=== PATIENT | male | born 1940 | race Caucasian/White ===

== ENCOUNTER 2017-12-15 07:30 | Inpatient (IN) | payer OTHER ==
[~2017-12-15] VITALS: Ht 165.1 cm; Wt 75.3 kg
[~2017-12-15 07:30] MED LIST: LORA10TA7 PO; LOSA1TAB3 PO; SIMV40TA5 PO; SITA1TAB10 PO
[2017-12-15] MEDS ORDERED: ACETAMINOPHEN 500 MG TABLET PO ONE (07:45)
[2017-12-15] MEDS ORDERED: NACL 0.9% 1,000 ML IV ONE (07:45)
[2017-12-15] MEDS ORDERED: GABAPENTIN 300 MG CAPSULE PO ONE (07:45)
[2017-12-15] MEDS ORDERED: TRANEXAMIC ACID 650 MG TABLET PO ONE (07:45)
[2017-12-15] MEDS ORDERED: oxyCODONE HCL 10 MG TAB.ER.12H PO ONE ×2 (07:45→08:19)
[2017-12-15] MEDS ORDERED: CELECOXIB 200 MG CAPSULE PO ONE (07:45)
[2017-12-15] MEDS ORDERED: CELECOXIB 200 MG CAPSULE ONE (08:18)
[2017-12-15] MEDS ORDERED: GABAPENTIN 300 MG CAPSULE ONE (08:18)
[2017-12-15] MEDS ORDERED: ACETAMINOPHEN 500 MG TABLET ONE (08:19)
[2017-12-15] MEDS ORDERED: VANCOMYCIN HCL 1 GM/NS PREMIX 250 ML IV ONE (08:30)
[2017-12-15] MEDS ORDERED: POLYMYXIN 500,000/BACIT.10,000 UNITS in NS IRR 1 L IR ONE (09:17)
[2017-12-15] MEDS ORDERED: NS 50 ML BAG IV ONE (09:30)
[2017-12-15] MEDS ORDERED: LR 1,000 ML IV.SOLN IV ONE (09:30)
[2017-12-15] MEDS ORDERED: PROPOFOL 200MG/ 20ML VIAL (DIPRIVAN) IV ONE (09:30)
[2017-12-15] MEDS ORDERED: ROPIVACAINE HCL/PF 5 MG/ML 0.5% 30 ML VIAL INJ ONE (09:30)
[2017-12-15] MEDS ORDERED: VANCOMYCIN HCL 1000 MG/VIAL IV ONE (09:30)
[2017-12-15] MEDS ORDERED: KETOROLAC TROMETHAMINE 30 MG VIAL IVP ONE (09:30)
[2017-12-15] MEDS ORDERED: EPINEPHrine 1 MG/ML AMP IVP ONE (09:30)
[2017-12-15] MEDS ORDERED: TRANEXAMIC ACID 1,000 MG/10 ML VIAL IV ONE (09:30)
[2017-12-15] MEDS ORDERED: NALBUPHINE HCL 10 MG/ML AMP IVP PRN (10:30)
[2017-12-15] MEDS ORDERED: NALOXONE HCL 0.4 MG/ML AMP (NARCAN) IVP PRN (10:30)
[2017-12-15] MEDS ORDERED: FENT2mCg/mL-ROPIVA0.2%/NS EPID 150 ML EP SCH (10:30)
[2017-12-15] MEDS ORDERED: DIPHENHYDRAMINE INJ 50 MG/ML VIAL IVP PRN (10:30)
[2017-12-15] MEDS ORDERED: KETOROLAC TROMETHAMINE 30 MG VIAL IVP PRN (10:30)
[2017-12-15] MEDS ORDERED: ONDANSETRON HCL 4 MG/2 ML VIAL IVP PRN ×3 (10:30→11:45)
[2017-12-15] MEDS ORDERED: fentaNYL CITRATE/PF 100 MCG/2 ML AMP IVP PRN (10:30)
[2017-12-15] MEDS ORDERED: ROPIVACAINE 0.2% 100 ML ONE (10:31)
[2017-12-15] MEDS ORDERED: PROMETHAZINE HCL 25 MG/ML AMP IVP PRN (11:45)
[2017-12-15] MEDS ORDERED: KETOROLAC TROMETHAMINE 15 MG VIAL IVP PRN (11:45)
[2017-12-15] MEDS ORDERED: DIPHENHYDRAMINE HCL 25 MG CAPSULE PO PRN (11:45)
[2017-12-15] MEDS ORDERED: oxyCODONE HCL 5 MG TABLET PO PRN (11:45)
[2017-12-15] MEDS ORDERED: MORPHINE SULFATE 10 MG/ML VIAL IVP PRN (11:45)
[2017-12-15] MEDS ORDERED: SENNOSIDES 8.6 MG TABLET PO PRN (11:45)
[2017-12-15 12:30] VITALS: BP_SYST 138
[2017-12-15] MEDS ORDERED: VANCOMYCIN HCL 1 GM/NS PREMIX 250 ML IV SCH (13:00)
[2017-12-15] MEDS: LR 1,000 ML IV SCH ×2 (15:45→21:45)
[2017-12-15] MEDS: ACETAMINOPHEN 500 MG TABLET PO SCH ×2 (15:46→22:02)
[2017-12-15 16:11] VITALS: BP_SYST 113
[2017-12-15 17:22] VITALS: BP_SYST 116
[2017-12-15] MEDS: metFORMIN HCL 500 MG TABLET PO SCH (17:40)
[2017-12-15 20:15] VITALS: BP_SYST 106
[2017-12-15] MEDS ORDERED: METFORMIN HCL PO SCH (21:00)
[2017-12-15] MEDS ORDERED: INSULIN REGULAR, HUMAN 100 UNITS/ML, 10 ML VIAL (novoLIN R) SUBCUT PRN (21:00)
[2017-12-15] MEDS ORDERED: [UNRECOGNIZED DRUG - OTHER] PO SCH (21:00)
[2017-12-15] MEDS ORDERED: SITAGLIPTIN PHOS PO SCH (21:00)
[2017-12-15] MEDS: GABAPENTIN 300 MG CAPSULE PO SCH (22:01)
[2017-12-15] MEDS: CELECOXIB 200 MG CAPSULE PO SCH (22:02)
[2017-12-15] MEDS ORDERED: FENT2mCg/mL-ROPIVA0.2%/NS EPID 150 ML EP ONE (23:10)
[2017-12-16] MEDS ORDERED: ROPIVACAINE 0.2% 100 ML ONE (00:52)
[2017-12-16 01:00] VITALS: BP_SYST 103
[2017-12-16] MEDS: ROPIVACAINE 0.2% 100 ML EPI SCH ×2 (02:14→16:14)
[2017-12-16] MEDS: LR 1,000 ML IV SCH ×3 (02:17→16:32)
[2017-12-16 04:17] VITALS: BP_SYST 100
[2017-12-16 06:13] LABS: BASOPHILS % (AUTO) 0.5 % (0.0-2.0); EOSINOPHILS # (AUTO) 0.4 K/uL (0.0-0.4); EOSINOPHILS % (AUTO) 4.5 % (0.0-4.0); HEMATOCRIT 34.6 % (36-54); HEMOGLOBIN 11.5 g/dL (14.0-18.0); LYMPHOCYTES # (AUTO) 1.5 K/uL (1.0-5.5); LYMPHOCYTES % (AUTO) 16.1 % (20.5-51.5); MEAN CORPUSCULAR HEMOGLOBIN 31 pg (27-31); MEAN CORPUSCULAR HGB CONC 33 % (32-36); MEAN CORPUSCULAR VOLUME 93 fL (79.0-98.0); MONOCYTES # (AUTO) 0.9 K/uL (0.0-1.0); MONOCYTES % (AUTO) 9.9 % (1.7-9.3); NEUTROPHILS # (AUTO) 6.2 K/uL (1.8-7.7); PLATELET COUNT (AUTO) 188 K/uL (130-430); RED BLOOD CELL COUNT(AUTO) 3.72 MIL/uL (4.2-6.2); RED CELL DISTRIBUTION WIDTH 13.1 % (9.0-15.0)
[2017-12-16 06:15] LABS: ANION GAP 1 (5-15); CALCIUM 9.6 mg/dL (8.4-11.0); CHLORIDE 107 mmol/L (98-107); CREATININE 1.14 mg/dL (0.55-1.30); GLUCOSE 109 mg/dL (70-99); POTASSIUM 5.2 mmol/L (3.5-5.1); SODIUM SERUM 137 mmol/L (136-145); UREA NITROGEN, BLOOD 35 mg/dL (8-21)
[2017-12-16 08:00] VITALS: BP_SYST 101
[2017-12-16] MEDS ORDERED: LOSARTAN/HYDROCHLOROTHIAZIDE TAB (HYZAAR 50-12.5 MG) PO SCH (09:00)
[2017-12-16] MEDS: LOSARTAN POTASSIUM 50 MG TABLET (COZAAR) PO SCH (09:00)
[2017-12-16] MEDS: LORATADINE 10 MG TABLET PO SCH (09:53)
[2017-12-16] MEDS: HYDROCHLOROTHIAZIDE 12.5 MG CAPSULE (HCTZ) PO SCH (09:53)
[2017-12-16] MEDS: CELECOXIB 200 MG CAPSULE PO SCH ×2 (09:53→20:46)
[2017-12-16] MEDS: SIMVASTATIN 40 MG TABLET PO SCH (09:54)
[2017-12-16] MEDS: metFORMIN HCL 500 MG TABLET PO SCH ×2 (09:54→17:42)
[2017-12-16] MEDS: VANCOMYCIN HCL 1 GM/NS PREMIX 250 ML IV SCH (09:55)
[2017-12-16] MEDS: ACETAMINOPHEN 500 MG TABLET PO SCH ×3 (09:56→20:45)
[2017-12-16] MEDS: RIVAROXABAN 10 MG TABLET PO SCH (10:36)
[2017-12-16 12:29] VITALS: BP_SYST 125
[2017-12-16 16:00] VITALS: BP_SYST 111
[2017-12-16] MEDS: GABAPENTIN 300 MG CAPSULE PO SCH (20:45)
[2017-12-17 00:49] VITALS: BP_SYST 103
[2017-12-17] MEDS: LR 1,000 ML IV SCH (03:04)
[2017-12-17] MEDS: ROPIVACAINE 0.2% 100 ML EPI SCH (05:28)
[2017-12-17 06:19] LABS: BASOPHILS # (AUTO) 0.1 K/uL (0.0-0.2); BASOPHILS % (AUTO) 0.6 % (0.0-2.0); EOSINOPHILS # (AUTO) 0.6 K/uL (0.0-0.4); EOSINOPHILS % (AUTO) 6.4 % (0.0-4.0); HEMATOCRIT 35.1 % (36-54); HEMOGLOBIN 11.6 g/dL (14.0-18.0); LYMPHOCYTES # (AUTO) 1.7 K/uL (1.0-5.5); LYMPHOCYTES % (AUTO) 18.5 % (20.5-51.5); MEAN CORPUSCULAR HEMOGLOBIN 31 pg (27-31); MEAN CORPUSCULAR HGB CONC 33 % (32-36); MEAN CORPUSCULAR VOLUME 93 fL (79.0-98.0); MONOCYTES % (AUTO) 11.1 % (1.7-9.3); NEUTROPHILS % (AUTO) 63.4 % (40.0-70.0); PLATELET COUNT (AUTO) 184 K/uL (130-430); RED BLOOD CELL COUNT(AUTO) 3.78 MIL/uL (4.2-6.2); RED CELL DISTRIBUTION WIDTH 12.9 % (9.0-15.0); WHITE BLOOD COUNT (AUTO) 9.4 K/uL (4.8-10.8)
[2017-12-17 06:51] LABS: ANION GAP 6 (5-15); CALCIUM 9.2 mg/dL (8.4-11.0); CHLORIDE 106 mmol/L (98-107); CREATININE 0.98 mg/dL (0.55-1.30); GLUCOSE 93 mg/dL (70-99); POTASSIUM 4.5 mmol/L (3.5-5.1); SODIUM SERUM 141 mmol/L (136-145); UREA NITROGEN, BLOOD 24 mg/dL (8-21)
[2017-12-17 08:00] VITALS: BP_SYST 126
[2017-12-17] MEDS: LOSARTAN POTASSIUM 50 MG TABLET (COZAAR) PO SCH (08:22)
[2017-12-17] MEDS: HYDROCHLOROTHIAZIDE 12.5 MG CAPSULE (HCTZ) PO SCH (08:22)
[2017-12-17] MEDS: metFORMIN HCL 500 MG TABLET PO SCH (08:23)
[2017-12-17] MEDS: CELECOXIB 200 MG CAPSULE PO SCH (08:23)
[2017-12-17] MEDS: LORATADINE 10 MG TABLET PO SCH (08:24)
[2017-12-17] MEDS: SIMVASTATIN 40 MG TABLET PO SCH (08:24)
[2017-12-17] MEDS: VANCOMYCIN HCL 1 GM/NS PREMIX 250 ML IV SCH (08:27)
[2017-12-17] MEDS ORDERED: HYDR-3924 PO (09:05)
[2017-12-17] MEDS ORDERED: RIVA10TA PO (09:06)
[2017-12-17] MEDS: oxyCODONE HCL 5 MG TABLET PO PRN ×2 (09:28→15:03)
[2017-12-17] MEDS: RIVAROXABAN 10 MG TABLET PO SCH (10:41)
[2017-12-17 12:33] VITALS: BP_SYST 123
[2017-12-17 15:06] VITALS: BP_SYST 123
[2017-12-17 16:00] VITALS: BP_SYST 128
== END 2017-12-17 16:03 | disposition home health service (06) | DRG 470 ==
LOC: SMU 07:30 → STU 13:03
PROVIDERS: ADMIT Orthopaedic Surgery; ATTEND Orthopaedic Surgery
PROC: 0SRC0J9 Replacement of Right Knee Joint with Synthetic Substitute, Cemented, Open Approach (ICD-10-PCS; principal; 2017-12-15 10:00)
DX: M17.11 Unilateral primary osteoarthritis, right knee (principal); E11.9 Type 2 diabetes mellitus without complications; E78.00 Pure hypercholesterolemia, unspecified; Z79.4 Long term (current) use of insulin; Z88.0 Allergy status to penicillin
CPT/HCPCS: 36415; 80048; 82962; 85025; 87081; 88305; 88311; 94010; 94760; 97039; 97110-GP; 97116-GP; 97530-GP; C1713; C1776; J0171; J1815; J1885; J2704; J2795; J3010; J3370; J3490; J7120